=== PATIENT | male | born 1980 | race Caucasian/White ===

== ENCOUNTER 2016-07-23 09:46 | Emergency (ER) | payer OTHER ==
[2016-07-23 09:51] VITALS: TEMP 98; BMI 27.0
[2016-07-23] MEDS ORDERED: diazePAM 5 MG TABLET PO ONE (10:03)
[2016-07-23] MEDS ORDERED: ASPIRIN 81 MG CHEWABLE TABLETS PO ONE (10:04)
--- NOTE | 2016-07-23 10:10 | PDOC ---
History of Present Illness - General Chief Complaint: Chest Pain Stated Complaint: back and chest pain Time Seen by Provider: 07/23/16 09:49 History Source: Patient Exam Limitations: No Limitations - History of Present Illness Initial Comments: 07/23/16 10:08 36 yo male with h/o epilepsy here with c/o chest pain and upper back pain. pt states pain started whil in [employer] store earlier today. initially had a back spasm, then developed chest pain.scapular back pain. worse with movement. no recent activities, other than playing with 3 kids. lifting luggage. chest pain started after back pain. no palpitations described as a tightness. did feel sob when occured. no diaphoresis. no n/v not plueritic. no leg swelling no traveling . no h/o pe or dvt. has had similar back spas/ pain in the past. no family h/o hearty disease except grandfather in his 70's. 07/23/16 11:14 Presenting Symptoms: Back Pain, Chest Pain Timing/Duration: reports: constant Severity/Quality: reports: mild, aching, tightness Location: reports: substernal, shoulder, back Chest Pain Radiation: reports: no radiation Activities at Onset: reports: none Prior Chest Pain/Cardiac Workup: reports: No prior chest pain, Other (has had similar scaluplar back pain in the past) Modifying Factors: worse with: antacids, exercise, oxygen Nitro Today/Relief: Yes: no nitro taken today Aspirin Received prior to arrival (Core Measure): Yes: no aspirin today Beta Ewelina given by EMS (Core Measure): No Beta Ewelina taken at Home (Core Measure): No Associated Symptoms: Yes: Denies symptoms, Shortness of Breath. No: Abdominal pain, Diaphoresis, Dizziness, Edema, Palpitations, Vomiting, Weakness Past History - Past Medical History Allergies/Adverse Reactions: Allergies Allergy/AdvReac Type Severity Reaction Status Date / Time No Known Allergies Allergy Verified 07/23/16 09:47 Home Medications: Ambulatory Orders Diazepam [Valium] 5 mg PO Q8H PRN #10 tablet NS MDD 3 07/23/16 Lamotrigine [Lamictal -] 200 mg PO DAILY 07/23/16 Seizures: Yes Other medical history: epilepsy - Psycho/Social/Smoking Cessation Hx Anxiety: No Suicidal Ideation: No Smoking History: Never smoked Hx Alcohol Use: Yes Drug/Substance Use Hx: No Substance Use Type: Alcohol Review of Systems - Review of Systems Constitutional: No: Chills, Diaphoresis HEENTM: No: Blurred Vision Respiratory: Yes: Shortness of Breath. No: Orthopnea Cardiac (ROS): Yes: Chest Pain. No: Edema, Irregular Heart Rate, Palpitations ABD/GI: No: Abdominal Distended : No: Burning, Dysuria Musculoskeletal: Yes: Back Pain. No: Gout, Joint Pain Integumentary: No: Bruising, Change in Color Neurological: No: Headache, Numbness All Other Systems: Reviewed and Negative *Physical Exam - Vital Signs Last Vital Signs Temp Pulse Resp BP Pulse Ox 98 F 68 18 135/94 100 07/23/16 09:47 07/23/16 13:25 07/23/16 13:25 07/23/16 13:25 07/23/16 13:25 - Physical Exam General Appearance: Yes: Nourished, Appropriately Dressed HEENT: positive: EOMI, Normal ENT Inspection, Normal Voice. negative: Pharynx Normal Neck: positive: Trachea midline. negative: Normal Thyroid Respiratory/Chest: positive: Chest Tender (left lateral chest ttp. no crepitus no step off.), Lungs Clear, Normal Breath Sounds. negative: Respiratory Distress, Wheezing Cardiovascular: positive: Regular Rhythm, Regular Rate, S1, S2. negative: Edema , Murmur Vascular Pulses: Dorsalis-Pedis (R): 2+, Doralis-Pedis (L): 2+ Gastrointestinal/Abdominal: positive: Normal Bowel Sounds, Flat, Soft. negative : Tender, Rebound, Tenderness Musculoskeletal: positive: Normal Inspection, Other (left scapular thoracic regions lateral m. ttp. spasm. no spinal ttp. ). negative: CVA Tenderness, Vertebral Tenderness Integumentary: positive: Normal Color, Dry, Warm Neurologic: positive: Fully Oriented, Alert, Normal Mood/Affect Heart Score/ECG Review - History History: Slightly suspicious - Electrocardiogram EKG: Normal - Age Age: </= 45 - Risk Factors Risk Factors Heart Score: No Hx Hypercholesterolemia, No Hx Hypertension, No Hx Diabetes, No Smoking History, No Positive family hx of cardiac disease Based on the list above the patient has:: No risk factors known - Troponin Troponin: </= normal limit - Score Heart Score - Total: 0 #1 ECG reviewed & interpreted by me at: 09:55 General ECG Interpretation: Sinus Rhythm, Normal Rate (82), Normal Intervals, No acute ischemic changes Compared to previous ECG there are: Previous ECG unavail (no old ekg) #2 General ECG Interpretation: Sinus Rhythm, Normal Rate (73), Normal Intervals, No acute ischemic changes Compared to previous ECG there are: No significant change - ECG Intrepretation Rhythm: Regular Rhythm - [place]: Normal ED Treatment Course - LABORATORY CBC & Chemistry Diagram: 07/23/16 10:09 07/23/16 10:09 - ADDITIONAL ORDERS Additional order review: Laboratory Results 07/23/16 07/23/16 07/23/16 13:38 11:30 10:09 INR D-Dimer < 200 Sodium Potassium Chloride Carbon Dioxide Anion Gap BUN Creatinine Creat Clearance w eGFR Random Glucose Calcium Total Bilirubin AST ALT Alkaline Phosphatase Creatine Kinase 76 94 Troponin I < 0.03 L < 0.03 L Total Protein Albumin 07/23/16 07/23/16 10:09 10:09 INR 1.02 D-Dimer Sodium 138 Potassium 4.2 Chloride 104 Carbon Dioxide 28 Anion Gap 6 L BUN 14 Creatinine 1.1 Creat Clearance w eGFR > 60 Random Glucose 109 H Calcium 9.4 Total Bilirubin 0.8 AST 32 ALT 67 H Alkaline Phosphatase 66 Creatine Kinase Troponin I Total Protein 7.1 Albumin 4.2 07/23/16 10:09 RBC 5.44 MCV 84.9 MCHC 34.6 RDW 12.1 MPV 8.0 Neutrophils % 54.7 Lymphocytes % 35.7 Monocytes % 7.0 Eosinophils % 1.5 Basophils % 1.1 - RADIOLOGY Radiology Studies Ordered: Category Date Time Status CHEST PA & LAT [RAD] Stat Radiology 07/23/16 10:03 Completed - Medications Given in the ED: ED Medications Discontinued Medications Generic Name Dose Route Start Last Admin Trade Name Freq PRN Reason Stop Dose Admin Al Hydroxide/Mg Hydroxide 30 ml 07/23/16 11:24 07/23/16 11:34 Mylanta Oral Suspension - PO 07/23/16 11:25 30 ml ONCE ONE Administration Aspirin 162 mg 07/23/16 10:04 07/23/16 10:23 Asa - PO 07/23/16 10:05 162 mg ONCE ONE Administration Diazepam 5 mg 07/23/16 10:03 07/23/16 10:23 Valium - PO 07/23/16 10:04 5 mg ONCE ONE Administration Famotidine 20 mg 07/23/16 11:23 07/23/16 11:34 Pepcid - PO 07/23/16 11:24 20 mg ONCE ONE Administration Ibuprofen 600 mg 07/23/16 11:23 07/23/16 11:34 Motrin - PO 07/23/16 11:24 600 mg ONCE ONE Administration Morphine Sulfate 4 mg 07/23/16 12:55 07/23/16 13:09 Morphine Injection - IVPUSH 07/23/16 12:56 Not Given ONCE ONE Morphine Sulfate 4 mg 07/23/16 13:02 07/23/16 13:09 Morphine Injection - IVPUSH 07/23/16 13:03 4 mg ONCE ONE Administration Nitroglycerin 0.4 mg 07/23/16 11:12 07/23/16 11:19 Nitrostat - SL 07/23/16 11:13 0.4 mg ONCE ONE Administration Medical Decision Making - Medical Decision Making 07/23/16 10:13 36 yo M wtih upper back pain/ spasm and chest pain. reproducible on exam. differential acs ( pt very few risk factors ), infection , muscle spsam. plan ekg cxr labs aspirin and muscle relaxer for muscle spasm. no risk factors for PE. reassess. marcio negrete obs and dc home if all negative. 07/23/16 11:14 pt labs negative. cxr normal. mild improvement with asa and valium. will give nitro for persistant chest pain. repeat ekg performed. . will observe to r/o ACS for 4 hr trop[address] pt sees DR. Raphael at [facility]. 07/23/16 14:44 pt labs normal. neg d dimer. ekg and rpt normal. cxr unremarkable. pain improved. marcio muskuloskeletal. will dc with motrin and valium. 4 hr trop negative. jose d/w pcp to discuss outpt stress l. *DC/Admit/Observation/Transfer Diagnosis at time of Disposition: Chest pain, Upper back strain - Discharge Dispostion Disposition: HOME Condition at time of disposition: Improved Admit: No - Prescriptions Prescriptions: Diazepam [Valium] 5 mg PO Q8H PRN #10 tablet NS MDD 3 PRN Reason: Back Pain - Referrals Referrals: Stacey Ghosh MD [Primary Care Provider] - Ishan Simpson MD [Staff Physician] - - Patient Instructions Printed Discharge Instructions: DI for Atypical Chest Pain, DI for Chest Pain, DI for Back Strain or Sprain Additional Instructions: you need to follow up with DR Ghosh, call to schedule within the next . you should schedule an outpatient stress test on your heart. see referralk for cardiology also. you can take ibuprofen 600 mg every 8 hours as needed for muscle pain. you can also take valium 5 mg every 8 hours as needed for muscle spasm. return for any difficulty breathing, persistant pain or any concerns.
[2016-07-23] MEDS ORDERED: ASPIRIN 81 MG CHEWABLE TABLETS ONE (10:14)
[2016-07-23] MEDS ORDERED: diazePAM 5 MG TABLET ONE (10:14)
[2016-07-23 10:23] LABS: BASOPHIL 1.1 % (0-2.0); EOSINOPHIL 1.5 % (0-4.5); MCH 29.4 pg (25.7-33.7); MCHC 34.6 g/dl (32.0-35.9); MEAN CELL VOLUME 84.9 fl (80-96); NEUTROPHILS 54.7 % (42.8-82.8); PLATELET COUNT 255 K/MM3 (134-434); RDW 12.1 % (11.9-15.9)
[2016-07-23 10:31] LABS: INR 1.02 (0.82-1.09); PROTHROMBIN TIME (PATIENT) 11.4 SEC (10.2-13.0)
[2016-07-23 10:34] LABS: ALBUMIN 4.2 g/dl (3.5-5.0); ALK PHOS 66 U/L (32-92); ANION GAP 6 (8-16); BILIRUBIN,TOTAL 0.8 mg/dl (0.2-1.0); CALCIUM 9.4 mg/dl (8.4-10.2); CO2 28 mmol/L (22-28); CPK(DFH) 94 IU/L (38-174); CREATININE 1.1 mg/dl (0.6-1.3); GLUCOSE,RANDOM 109 mg/dl (74-106); SGOT/AST 32 U/L (10-42); SGPT/ALT 67 U/L (10-40); TOT PROT 7.1 g/dl (6.4-8.3)
[2016-07-23 10:47] LABS: TROPONIN I (DFP) < 0.03 ng/ml (0.03-0.50)
[2016-07-23] MEDS ORDERED: NITROGLYCERIN SUBLINGUAL 1/150 0.4 MG TAB SL ONE (11:12)
[2016-07-23] MEDS ORDERED: NITROGLYCERIN SUBLINGUAL 1/150 0.4 MG TAB ONE ×2 (11:13→11:15)
[2016-07-23] MEDS ORDERED: IBUPROFEN 600 MG TABLET (FP) PO ONE ×2 (11:23→11:31)
[2016-07-23] MEDS ORDERED: FAMOTIDINE 20 MG TABLET PO ONE (11:23)
[2016-07-23] MEDS ORDERED: MAG HYDROX/AL HYDROX/SIMETH 30 ML UNIT-DOSE CUP PO ONE (11:24)
[2016-07-23] MEDS ORDERED: MAG HYDROX/AL HYDROX/SIMETH 30 ML UNIT-DOSE CUP ONE (11:31)
[2016-07-23] MEDS ORDERED: FAMOTIDINE 20 MG TABLET ONE (11:31)
[2016-07-23] MEDS ORDERED: morphine CARPU-JECT 4 MG/1 ML DISP.SYRIN IVPUSH ONE ×2 (12:55→13:02)
[2016-07-23] MEDS ORDERED: morphine CARPU-JECT 4 MG/1 ML DISP.SYRIN ONE (13:04)
[2016-07-23 14:15] LABS: CPK(DFH) 76 IU/L (38-174)
[2016-07-23 15:13] LABS: TROPONIN I (DFP) < 0.03 ng/ml (0.03-0.50)
[2016-07-23 15:30] VITALS: BP 137/90; PULSE 76
--- NOTE | 2016-07-24 10:58 | EKG ---
Test Reason : Blood Pressure : / mmHG Vent. Rate : 082 BPM Atrial Rate : 082 BPM P-R Int : 140 ms QRS Dur : 096 ms QT Int : 362 ms P-R-T Axes : 028 007 033 degrees QTc Int : 422 ms NORMAL SINUS RHYTHM NORMAL ECG NO PREVIOUS ECGS AVAILABLE Confirmed by CHARLIE JACKSON MD ([id number]) on 07/24/2016 10:57:39 AM Referred By: DUY SALAS Confirmed By:CHARLIE JACKSON MD
--- NOTE | 2016-07-24 11:50 | EKG ---
Test Reason : Blood Pressure : / mmHG Vent. Rate : 073 BPM Atrial Rate : 073 BPM P-R Int : 140 ms QRS Dur : 096 ms QT Int : 372 ms P-R-T Axes : 027 008 037 degrees QTc Int : 409 ms NORMAL SINUS RHYTHM NORMAL ECG WHEN COMPARED WITH ECG OF 23-JUL-2016 09:53, NO SIGNIFICANT CHANGE WAS FOUND Confirmed by CHARLIE JACKSON MD ([id number]) on 07/24/2016 11:50:15 AM Referred By: DUY SALAS Confirmed By:CHARLIE JACKSON MD
== END 2016-07-23 15:40 | disposition home or self-care (01) ==
LOC: FER 09:46
PROC: 3E033NZ Introduction of Analgesics, Hypnotics, Sedatives into Peripheral Vein, Percutaneous Approach (ICD-10-PCS; principal; 2016-07-23)
DX: R07.9 Chest pain, unspecified (principal); S29.012A Strain of muscle and tendon of back wall of thorax, initial encounter; X58.XXXA Exposure to other specified factors, initial encounter; Y93.9 Activity, unspecified; Y92.9 Unspecified place or not applicable; G40.909 Epilepsy, unspecified, not intractable, without status epilepticus
CPT/HCPCS: 36415; 71020-TC; 80053; 82550; 84484; 85025; 85379; 85610; 93005; 93010; 99285-25

== ENCOUNTER 2016-08-20 08:18 | Emergency (ER) | payer OTHER ==
[2016-08-20 08:38] VITALS: BMI 27.7
--- NOTE | 2016-08-20 08:54 | PDOC ---
History of Present Illness - History of Present Illness Initial Comments: 08/20/16 08:57 Mr. Wood is a 36 year old male with a significant past medical history of epilepsy who presents to the emergency department after reported grand mal seizure this AM at 0700. Seizure reportedly lasted for 1 minute and he was unresponsive for 15 minutes after the even. Was given O2 by police and seemed to "come out of it" but was still post-ictal on arrival to ER. Patient's spouse reports they have been under a lot of stress and running around a lot lately. Mr. Wood also bit his tongue during the initial seizure. The patient denies chest pain, shortness of breath, headache and dizziness. Denies fever, chills, nausea, vomit, diarrhea and constipation. Denies dysuria, frequency, urgency and hematuria. Allergies: NKDA Past surgical history: Denies Social history: PMD - 08/20/16 09:10 08/20/16 09:45 <Lars Ruiz - Last Filed: 08/20/16 15:17> <Josiane Menon - Last Filed: 08/21/16 09:41> - General Chief Complaint: Seizure Stated Complaint: SEIZURE Time Seen by Provider: 08/20/16 08:45 Past History - Past Medical History Diabetes: No HTN: No Hypercholesterolemia: No Seizures: Yes - Psycho/Social/Smoking Cessation Hx Anxiety: No Suicidal Ideation: No Smoking History: Never smoked Have you smoked in the past 12 months: No Information on smoking cessation initiated: No Hx Alcohol Use: No Drug/Substance Use Hx: No Substance Use Type: Alcohol <Lars Ruiz - Last Filed: 08/20/16 15:17> <Josiane Menon - Last Filed: 08/21/16 09:41> - Past Medical History Allergies/Adverse Reactions: Allergies Allergy/AdvReac Type Severity Reaction Status Date / Time No Known Allergies Allergy Verified 08/20/16 08:38 Home Medications: Ambulatory Orders Diazepam [Valium] 5 mg PO Q8H PRN #10 tablet NS MDD 3 07/23/16 Lamotrigine [Lamictal -] 200 mg PO DAILY 07/23/16 Review of Systems - Review of Systems Comments:: 08/20/16 08:57 GENERAL/CONSTITUTIONAL: No fever or chills. No weakness. HEAD, EYES, EARS, NOSE AND THROAT: No change in vision. No ear pain or discharge. No sore throat. CARDIOVASCULAR: No chest pain or shortness of breath RESPIRATORY: No cough, wheezing, or hemoptysis. GASTROINTESTINAL: No nausea, vomiting, diarrhea or constipation. GENITOURINARY: No dysuria, frequency, or change in urination. MUSCULOSKELETAL: Left shoulder pain. No joint or muscle swelling. No neck or back pain. SKIN: No rash NEUROLOGIC: +Loss of conciousness with seizure. +Seizure. No headache, vertigo, or change in strength/sensation. ENDOCRINE: No increased thirst. No abnormal weight change HEMATOLOGIC/LYMPHATIC: No anemia, easy bleeding, or history of blood clots. ALLERGIC/IMMUNOLOGIC: No hives or skin allergy. 08/20/16 10:00 <Lars Ruiz - Last Filed: 08/20/16 15:17> *Physical Exam - Vital Signs Last Vital Signs Temp Pulse Resp BP Pulse Ox 97.7 F 78 18 117/88 100 08/20/16 08:18 08/20/16 08:18 08/20/16 08:18 08/20/16 08:18 08/20/16 08:18 - Physical Exam Comments: 08/20/16 08:56 GENERAL: Awake, alert, and fully oriented, in no acute distress HEAD: No signs of trauma, normocephalic, atraumatic EYES: PERRLA, EOMI, sclera anicteric, conjunctiva clear ENT: Auricles normal inspection, hearing grossly normal, nares patent, oropharynx clear without exudates. Moist mucosa NECK: Normal ROM, supple, no lymphadenopathy, JVD, or masses LUNGS: No distress, speaks full sentences, clear to auscultation bilaterally HEART: Regular rate and rhythm, normal S1 and S2, no murmurs, rubs or gallops, peripheral pulses normal and equal bilaterally. ABDOMEN: Soft, nontender, normoactive bowel sounds. No guarding, no rebound. No masses EXTREMITIES: +Reproducable pain with palpation to left shoulder. Some weakness, difficult to determine if muscular or post-ictal response. Normal inspection, Normal range of motion, no edema. No clubbing or cyanosis. NEUROLOGICAL: +Post ictal type responses, some confusion. Cranial nerves II through XII grossly intact. Normal speech, normal gait, no focal sensorimotor deficits SKIN: Warm, Dry, normal turgor, no rashes or lesions noted. 08/20/16 10:01 <Lars Ruiz - Last Filed: 08/20/16 15:17> - Vital Signs Last Vital Signs Temp Pulse Resp BP Pulse Ox 97.7 F 78 18 117/88 100 08/20/16 08:18 08/20/16 08:18 08/20/16 08:18 08/20/16 08:18 08/20/16 08:18 <Josiane Menon - Last Filed: 08/21/16 09:41> Procedures - Laceration/Wound Repair Head Wound Length: to 2.5 cm Wound Explored: clean Wound's Depth, Shape: into muscle, linear Irrigated w/ Saline: No Betadine Prep: No Anesthesia: 1% Lidocaine Amount of Anesthetic (ccs): 2 Wound Repaired With: Sutures Suture Size/Type: 5:0, other (gut) Number of Sutures: 2 Layer Closure: No Progress: 08/20/16 15:11 2 small lacerations to tongue. 1 stitch to each given + hemostasis. Patient tolerated well. <Lars Ruiz - Last Filed: 08/20/16 15:17> ED Treatment Course - LABORATORY CBC & Chemistry Diagram: 08/20/16 09:16 08/20/16 09:16 <Lars Ruiz - Last Filed: 08/20/16 15:17> - LABORATORY CBC & Chemistry Diagram: 08/20/16 09:16 08/20/16 09:16 - ADDITIONAL ORDERS Additional order review: Laboratory Results 08/20/16 09:16 Sodium 139 Potassium 4.4 Chloride 103 Carbon Dioxide 25 Anion Gap 11 BUN 15 Creatinine 1.0 Random Glucose 155 H Calcium 9.6 08/20/16 09:16 RBC 5.54 MCV 83.8 MCHC 35.7 RDW 13.2 MPV 7.9 Neutrophils % 72.4 Lymphocytes % 21.3 Monocytes % 4.9 Eosinophils % 0.8 Basophils % 0.6 - Medications Given in the ED: ED Medications Discontinued Medications Generic Name Dose Route Start Last Admin Trade Name Freq PRN Reason Stop Dose Admin Lamotrigine 400 mg 08/20/16 12:24 08/20/16 13:51 Lamictal - PO 08/20/16 12:25 400 mg ONCE ONE Administration Lorazepam 2 mg 08/20/16 09:15 08/20/16 09:32 Ativan Injection - IVPUSH 08/20/16 09:16 2 mg ONCE ONE Administration <Josiane Menon - Last Filed: 08/21/16 09:41> Medical Decision Making - Medical Decision Making 08/20/16 10:02 Patient came to ER via ambulance after witnessed grand mal seizure. While in ER bay had second grand mal seizure. Tongue observed to be bitten during second seizure - ativan given along with O2. Plan to administer home seizure medications when able to swallow again post ativan. Some concern for shoulder dislocation. 08/20/16 12:25 Patient awake and able to tolerate sips of water. Ordered home medication 08/20/16 13:57 200 Lamictil given, will give another 200 in 5 minutes 08/20/16 15:12 2 sutures given to tongue <Lars Ruiz - Last Filed: 08/20/16 15:17> - Medical Decision Making XR of shoulder with no signs of dislocation. <Josiane Menon - Last Filed: 08/21/16 09:41> *DC/Admit/Observation/Transfer - Attestations Physician Attestion: 08/20/16 10:02 I, Dr. Lars Ruiz, attest that this document has been prepared under my direction and personally reviewed by me in its entirety. I further attest, that it accurately reflects all work, treatment, procedures and medical decision -making performed by me. <Lars Ruiz - Last Filed: 08/20/16 15:17> - Discharge Dispostion Admit: No <Josiane Menon - Last Filed: 08/21/16 09:41> Diagnosis at time of Disposition: Seizure, Laceration of tongue - Discharge Dispostion Disposition: HOME Condition at time of disposition: Improved - Referrals Referrals: Stacey Ghosh MD [Primary Care Provider] - - Patient Instructions Printed Discharge Instructions: DI for Seizure Disorder -- Adult, How to Care for Absorbable Sutures
[2016-08-20] MEDS ORDERED: LORazepam 2 MG/ML SDV VIAL ONE (09:11)
[2016-08-20] MEDS ORDERED: LORAZEPAM CARPU-JECT 2 MG/ML DISP.SYRIN IVPUSH ONE (09:15)
--- NOTE | 2016-08-20 09:27 | PDOC ---
Attending Attestation - Resident Resident Name: Lars Ruiz - ED Attending Attestation I have performed the following: I have examined & evaluated the patient, The case was reviewed & discussed with the resident, I agree w/resident's findings & plan, Exceptions are as noted - HPI HPI: 36 yo M hx SZ disorder presents with seizure this morning. As per , at bedside, he did not yet take his lamictal today. He has been under extra stress recently- was on vacation with 8 kids and did not sleep much. No recent fevers, illness. He has not missed any doses of his medication, but did not yet take today's dose of Lamictal. He typically has breakthrough seizures once or twice per year. No recent med changes. - Physicial Exam PE: GENERAL: Actively seizing. HEAD: No signs of trauma. +Bleeding from mouth (bit tongue during initial seizure at home). EYES: PERRLA, EOMI, sclera anicteric, conjunctiva clear ENT: Auricles normal inspection, hearing grossly normal, nares patent, oropharynx clear without exudates. Moist mucosa NECK: Normal ROM, supple, no lymphadenopathy, JVD, or masses LUNGS: Breath sounds equal, clear to auscultation bilaterally. No wheezes, and no crackles HEART: Regular rate and rhythm, normal S1 and S2, no murmurs, rubs or gallops ABDOMEN: Soft, nontender, normoactive bowel sounds. No guarding, no rebound. No masses EXTREMITIES: Normal range of motion, no edema. No clubbing or cyanosis. No cords, erythema, or tenderness NEUROLOGICAL: Limited by seizure. SKIN: Warm, Dry, normal turgor, no rashes or lesions noted. - Medical Decision Making Pt with breakthrough seizure. Required ativan IVP in ED for seizure. Monitored until postictal state resolved. Lamictal to be given PO, then likely DC home with outpatient neuro f/u.
[2016-08-20 09:40] LABS: BASOPHIL 0.6 % (0-2.0); EOSINOPHIL 0.8 % (0-4.5); MCH 29.9 pg (25.7-33.7); MCHC 35.7 g/dl (32.0-35.9); MEAN CELL VOLUME 83.8 fl (80-96); MEAN PLT VOLUME 7.9 fl (7.5-11.1); NEUTROPHILS 72.4 % (42.8-82.8); PLATELET COUNT 225 K/MM3 (134-434); RDW 13.2 % (11.9-15.9); WHITE BLOOD COUNT 9.1 K/mm3 (4.0-10.0)
[2016-08-20 10:00] LABS: ANION GAP 11 (8-16); CALCIUM 9.6 mg/dL (8.5-10.1); CO2 25 mmol/L (21-32); GLUCOSE,RANDOM 155 mg/dL (74-106)
[2016-08-20] MEDS ORDERED: IBUPROFEN 400 MG TABLET (FP) PO ONE ×2 (15:22→15:30)
[2016-08-20 15:35] VITALS: BP 121/86; PULSE 98; TEMP 98.8
--- NOTE | 2016-08-22 11:57 | EKG ---
Test Reason : Blood Pressure : / mmHG Vent. Rate : 105 BPM Atrial Rate : 105 BPM P-R Int : 150 ms QRS Dur : 100 ms QT Int : 348 ms P-R-T Axes : 040 012 026 degrees QTc Int : 459 ms SINUS TACHYCARDIA OTHERWISE NORMAL ECG WHEN COMPARED WITH ECG OF 23-JUL-2016 11:21, QT HAS LENGTHENED Confirmed by KAT SANTAMARIA MD ([id number]) on 08/22/2016 11:56:33 AM Referred By: Confirmed By:KAT SANTAMARIA MD
== END 2016-08-20 15:49 | disposition home or self-care (01) ==
LOC: JER 08:18
PROC: 0CQ7XZZ Repair Tongue, External Approach (ICD-10-PCS; principal; 2016-08-20)
PROC: 3E033NZ Introduction of Analgesics, Hypnotics, Sedatives into Peripheral Vein, Percutaneous Approach (ICD-10-PCS; 2016-08-20)
DX: G40.409 Other generalized epilepsy and epileptic syndromes, not intractable, without status epilepticus (principal); S01.512A Laceration without foreign body of oral cavity, initial encounter; Y33.XXXA Other specified events, undetermined intent, initial encounter; Y93.89 Activity, other specified; Y92.018 Other place in single-family (private) house as the place of occurrence of the external cause
CPT/HCPCS: 36415; 73030-TC-LT; 80048; 85025; 93005; 93010; 99283-25

== ENCOUNTER 2020-01-12 14:26 | Emergency (ER) | payer OTHER ==
[2020-01-12 15:05] VITALS: BP 130/85; PULSE 94; TEMP 97.7; BMI 27.0
[2020-01-12] MEDS ORDERED: LIDOCAINE 5% TOPICAL PATCH TP ONE (15:22)
[2020-01-12] MEDS ORDERED: ACETAMINOPHEN 500 MG TABLET (FP) PO ONE (15:22)
[2020-01-12] MEDS ORDERED: SODIUM CHLORIDE 0.9% 500 ML INFUS.BAG IV ONE (15:33)
[2020-01-12] MEDS ORDERED: LIDOCAINE 5% TOPICAL PATCH ONE (16:17)
[2020-01-12] MEDS ORDERED: LIDOCAINE PATCH REMOVAL MC SCH (22:00)
== END 2020-01-12 17:47 | disposition home or self-care (01) ==
LOC: FER 14:26
DX: N20.0 Calculus of kidney (principal)
CPT/HCPCS: 74177-TC; 81003; 81015; 87086; 99285-25; Q9967